=== PATIENT | male | born 1930 | race Caucasian/White ===

== ENCOUNTER 2019-05-25 14:11 | Emergency (ER) | payer MEDICARE, OTHER ==
[~2019-05-25] VITALS: Ht 167.7 cm; Wt 71.8 kg
--- NOTE | 2019-05-25 14:50 | ED GI ---
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 has had some weakness and dizziness Timing/Duration: 1-2 Days Severity/Quality: Moderate, Cramping Location: Generalized Abdomen Radiation: No Radiation Activities at Onset: Rest Modifying Factors: Improves With Eating, Improves With Movement Associated Symptoms: No Chest Pain, No Fatigue, No Headache, No Heartburn, No Syncope; Weakness Allergies and Home Medications Allergies Coded Allergies: No Known Drug Allergies (Unverified , 05/25/19) Patient Home Medication List Home Medication List Reviewed: Yes Review of Systems Review of Systems Constitutional: No chills, No dizziness, No fever; malaise EENTM: No Symptoms Reported Respiratory: Denies Cough, Denies Shortness of Air Cardiovascular: Denies Chest Pain; Lightheadedness; Denies Palpitations Gastrointestinal: Denies Abdomen Distended, Denies Abdominal Pain; Diarrhea Genitourinary: No Symptoms Reported Musculoskeletal: no symptoms reported Skin: no symptoms reported Psychiatric/Neurological: No Symptoms Reported Past Njzbirf-Wzoozz-Ntbqqd Hx Past Med/Social Hx: Reviewed Nursing Past Med/Soc Hx Patient Social History Recent Foreign Travel: No Physical Exam Vital Signs Vital Signs - First Documented 05/25/19 14:20 Temp 36.6 Pulse 83 Resp 16 B/P (MAP) 139/64 (89) Pulse Ox 97 O2 Delivery Room Air Capillary Refill : Height/Weight/BMI Height: '" Weight: lbs. oz. kg; BMI Method: General Appearance: WD/WN, no apparent distress HEENT: normal ENT inspection, TMs normal, pharynx normal Neck: full range of motion, supple Respiratory: lungs clear, no respiratory distress Cardiovascular: no JVD Gastrointestinal: non tender (quiet), soft, abnormal bowel sounds Extremities: normal range of motion, normal inspection, no calf tenderness Back: no CVA tenderness, no vertebral tenderness Neurologic/Psychiatric: no motor/sensory deficits, alert, normal mood/affect Skin: normal color, warm/dry Progress/Results/Core Measures Results/Orders Lab Results Laboratory Tests Test 05/25/19 14:35 05/25/19 17:00 Range/Units White Blood Count 9.0 4.3-11.0 10^3/uL Red Blood Count 3.42 L 4.35-5.85 10^6/uL Hemoglobin 11.4 L 13.3-17.7 G/DL Hematocrit 32 L 40-54 % Mean Corpuscular Volume 92 80-99 FL Mean Corpuscular Hemoglobin 33 25-34 PG Mean Corpuscular Hemoglobin Concent 36 32-36 G/DL Red Cell Distribution Width 13.2 10.0-14.5 % Platelet Count 191 130-400 10^3/uL Mean Platelet Volume 9.4 7.4-10.4 FL Neutrophils (%) (Auto) 79 H 42-75 % Lymphocytes (%) (Auto) 11 L 12-44 % Monocytes (%) (Auto) 10 0-12 % Eosinophils (%) (Auto) 0 0-10 % Basophils (%) (Auto) 0 0-10 % Neutrophils # (Auto) 7.1 1.8-7.8 X 10^3 Lymphocytes # (Auto) 1.0 1.0-4.0 X 10^3 Monocytes # (Auto) 0.9 0.0-1.0 X 10^3 Eosinophils # (Auto) 0.0 0.0-0.3 10^3/uL Basophils # (Auto) 0.0 0.0-0.1 10^3/uL Neutrophils % (Manual) 71 % Lymphocytes % (Manual) 6 % Monocytes % (Manual) 5 % Metamyelocytes % 1 % Band Neutrophils 8 % Atypical Lymphocytes 9 % Blood Morphology Comment NORMAL Sodium Level 135 135 135-145 MMOL/L Potassium Level 2.8 L 3.0 L 3.6-5.0 MMOL/L Chloride Level 98 103 98-107 MMOL/L Carbon Dioxide Level 19 L 17 L 21-32 MMOL/L Anion Gap 18 H 15 H 5-14 MMOL/L Blood Urea Nitrogen 54 H 53 H 7-18 MG/DL Creatinine 7.53 H 6.99 #H 0.60-1.30 MG/DL Estimat Glomerular Filtration Rate 7 7 BUN/Creatinine Ratio 7 8 Glucose Level 120 H 104 70-105 MG/DL Calcium Level 9.2 8.2 L 8.5-10.1 MG/DL Corrected Calcium 9.0 8.5-10.1 MG/DL Total Bilirubin 0.7 0.1-1.0 MG/DL Aspartate Amino Transf (AST/SGOT) 16 5-34 U/L Alanine Aminotransferase (ALT/SGPT) 9 0-55 U/L Alkaline Phosphatase 60 40-136 U/L Total Protein 7.8 6.4-8.2 GM/DL Albumin 4.3 3.2-4.5 GM/DL My Orders Orders - JACKIE BEACH JR, MD Cbc And Manual Diff (05/25/19 14:17) Comprehensive Metabolic Panel (05/25/19 14:17) Ns Iv 1000 Ml (Sodium Chloride 0.9%) (05/25/19 15:00) Ns Iv 1000 Ml (Sodium Chloride 0.9%) (05/25/19 14:52) Potassium Chloride (Tablet) (K Dur Table (05/25/19 15:45) Potassium Cl 10meq/50ml Ivpb (Kcl 10 Meq (05/25/19 16:00) Ns (Ivpb) (Sodium Chloride 0.9%) (05/25/19 16:18) Ed Iv/Invasive Line Start (05/25/19 16:24) Ns (Ivpb) (Sodium Chloride 0.9%) (05/25/19 16:24) Basic Metabolic Panel (05/25/19 16:52) Basic Metabolic Panel (05/25/19 16:53) Medications Given in ED Current Medications Medications Dose Ordered Sig/Jena Route Start Time Stop Time Status Last Admin Dose Admin Potassium Chloride 40 meq ONCE ONCE PO 05/25/19 15:45 05/25/19 15:46 DC 05/25/19 15:52 40 MEQ Potassium Chloride 50 ml @ 50 mls/hr ONCE ONCE IV 05/25/19 16:00 05/25/19 16:59 DC 05/25/19 15:55 50 MLS/HR Sodium Chloride 250 ml @ 0 mls/hr Q0M ONCE IV 05/25/19 16:24 05/25/19 16:26 DC 05/25/19 16:26 0 MLS/HR Vital Signs/I&O 05/25/19 14:20 Temp 36.6 Pulse 83 Resp 16 B/P (MAP) 139/64 (89) Pulse Ox 97 O2 Delivery Room Air Progress Progress Note : Time: 16:07 Progress Note Patient is here for IV fluids following diarrhea his blood work did shows potassium was low and his creatinine was about 7 to give him a liter of fluids we'll give him 40 of K by mouth and another 10 IV and recheck. Potassium on the recheck now is 3.0 I do think this is adequate for him to go home will continue to take his potassium supplement at home will recheck tomorrow or Thursday with his own physician. 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 Referrals: SELF,DONOVAN DE LA TORRE (PCP/Family) Primary Care Physician Patient Instructions: Chronic Kidney Disease, Hypokalemia JACKIE BEACH JR, MD May 25, 2019 14:50 POS
[2019-05-25] MEDS ORDERED: NS IV 1000 ML 1,000 ML ONE (14:52)
[2019-05-25 14:56] LABS: HEMATOCRIT 32 % (40-54); HEMOGLOBIN 11.4 G/DL (13.3-17.7); MEAN CORPUSCULAR HEMOGLOBIN 33 PG (25-34); MEAN CORPUSCULAR HGB CONC 36 G/DL (32-36); MEAN CORPUSCULAR VOLUME 92 FL (80-99)
[2019-05-25 14:57] LABS: BASOPHILS % (AUTO) 0 % (0-10); EOSINOPHILS % (AUTO) 0 % (0-10); LYMPHOCYTES % (AUTO) 11 % (12-44); MEAN PLATELET VOLUME 9.4 FL (7.4-10.4); MONOCYTES # (AUTO) 0.9 X 10^3 (0.0-1.0); MONOCYTES % (AUTO) 10 % (0-12); NEUTROPHILS # (AUTO) 7.1 X 10^3 (1.8-7.8); NEUTROPHILS % (AUTO) 79 % (42-75); PLATELET COUNT 191 10^3/uL (130-400); RED CELL DISTRIBUTION WIDTH 13.2 % (10.0-14.5)
[2019-05-25] MEDS ORDERED: NS IV 1000 ML 1,000 ML IV SCH (15:00)
[2019-05-25 15:16] LABS: ATYPICAL LYMPHOCYTES 9 %; BAND NEUTROPHILS 8 %; LYMPHOCYTES % (MANUAL) 6 %; METAMYELOCYTES % 1 %; MONOCYTES % (MANUAL) 5 %; NEUTROPHILS % (MANUAL) 71 %; RBC MORPH NORMAL
[2019-05-25 15:22] LABS: POTASSIUM 2.8 MMOL/L (3.6-5.0)
[2019-05-25 15:23] LABS: ALBUMIN 4.3 GM/DL (3.2-4.5); BILIRUBIN,TOTAL 0.7 MG/DL (0.1-1.0); CALCIUM 9.2 MG/DL (8.5-10.1); CREATININE SERUM 7.53 MG/DL (0.60-1.30); TOTAL PROTEIN 7.8 GM/DL (6.4-8.2)
[2019-05-25] MEDS ORDERED: KCL 20 MEQ TAB (K-DUR) PO ONE (15:45)
[2019-05-25] MEDS ORDERED: POTASSIUM CL 10MEQ/50ML IVPB 50 ML IV ONE (16:00)
[2019-05-25] MEDS ORDERED: NS (IVPB) 250 ML ONE (16:18)
[2019-05-25] MEDS ORDERED: NS (IVPB) 250 ML IV ONE (16:24)
[2019-05-25 17:25] LABS: CALCIUM 8.2 MG/DL (8.5-10.1); CREATININE SERUM 6.99 MG/DL (0.60-1.30)
[2019-05-25 17:55] VITALS: BP 119/65
--- OUTSIDE RECORDS SUMMARY | 2019-06-20 10:48 | XMS REPORT | Continuity of Care Document ---
Author Organization Unknown Address Unknown Phone Unavailable Allergies Active Description Code Type Severity Reaction Onset Reported/Identified Relationship to Patient Clinical Status Yes No Known Drug Allergies [id number] Drug Allergy Unknown N/A 05/25/2019 Medications There is no data. Problems Date Dx Coded Attending Type Code Diagnosis Diagnosed By 05/30/2019 BAYLEE DE LA TORRE, JACKIE Hernandez Ot E86.0 DEHYDRATION 05/30/2019 JACKIE BEACH MD Ot E87.6 HYPOKALEMIA 05/30/2019 JACKIE BEACH MD Ot N18.6 END STAGE RENAL DISEASE 05/30/2019 JACKIE BEACH MD Ot R11.10 VOMITING, UNSPECIFIED 05/30/2019 JACKIE BEACH MD Ot Z99.2 DEPENDENCE ON RENAL DIALYSIS 06/13/2019 DONOVAN ALEXANDRA MD Ot M54.10 RADICULOPATHY, SITE UNSPECIFIED Procedures There is no data. Results Test Result Range Blood CBC with ordered manual differenti al panel - 05/25/19 14:35 Blood leukocytes automated count (number/volume) 9.0 10*3/uL 4.3-11.0 Blood erythrocytes automated count (number/volume) 3.42 10*6/uL 4.35-5.85 Venous blood hemoglobin measurement (mass/volume) 11.4 g/dL 13.3-17.7 Blood hematocrit (volume fraction) 32 % 40-54 Automated erythrocyte mean corpuscular volume 92 [ foz_us] 80-99 Automated erythrocyte mean corpuscular h emoglobin (mass per erythrocyte) 33 pg 25-34 Automated erythrocyte mean corpuscular h emoglobin concentration measurement (mass/volume) 36 g/dL 32-36 Automated erythrocyte distribution width ratio 13. 2 % 10.0- 14.5 Automated blood platelet count (count/volume) 191 10*3/uL 130-400 Automated blood platelet mean volume measurement 9.4 [foz_us] 7.4-10.4 Automated blood neutrophils/100 leukocytes 79 % 42-75 Automated blood lymphocytes/100 leukocytes 11 % 12-44 Blood monocytes/100 leukocytes 5 % NRG Automated blood eosinophils/100 leukocytes 0 % 0-10 Automated blood basophils/100 leukocytes 0 % 0-10 Blood neutrophils automated count (number/volume) 7.1 10*3 1.8-7.8 Blood lymphocytes automated count (number/volume) 1.0 10*3 1.0-4.0 Blood monocytes automated count (number/volume) 0. 9 10*3 0.0-1.0 Automated eosinophil count 0.0 10*3/uL 0 .0-0.3 Automated blood basophil count (count/volume) 0.0 10*3/uL 0.0-0.1 Manual blood segmented neutrophils/100 leukocytes 71 % NRG Blood band neutrophils/100 leukocytes 8 % NRG Manual blood lymphocytes/100 leukocytes 6 % NRG Manual blood lymphocytes variant/100 leukocytes 9 % NRG Blood erythrocyte morphology finding identification NORMAL NRG Manual blood metamyelocytes/100 leukocytes 1 % NRG Comprehensive metabolic panel - 05/25/19 14:35 Serum or plasma sodium measurement (moles/volume) 135 mmol/L 135-145 Serum or plasma potassium measurement (moles/volume) 2.8 mmol/L 3.6-5.0 Serum or plasma chloride measurement (moles/volume) 98 mmol/L 98-107 Carbon dioxide 19 mmol/L 21-32 Serum or plasma anion gap determination (moles/volume) 18 mmol/L 5-14 Serum or plasma urea nitrogen measurement (mass/volume ) 54 mg/dL 7-18 Serum or plasma creatinine measurement (mass/volume) 7.53 mg/dL 0.60-1.30 Serum or plasma urea nitrogen/creatinine mass ratio 7 NRG Serum or plasma creatinine measurement w ith calculation of estimated glomerular filtration rate 7 NRG Serum or plasma glucose measurement (mass/volume) 120 mg/dL 70-105 Serum or plasma calcium measurement (mass/volume) 9.2 mg/dL 8.5-10.1 Serum or plasma total bilirubin measurement (mass/volu me) 0.7 mg/dL 0.1-1.0 Serum or plasma alkaline phosphatase julián surement (enzymatic activity/volume) 60 U/L 40-136 Serum or plasma aspartate aminotransfera se measurement (enzymatic activity/volume) 16 U/L 5-34 Serum or plasma alanine aminotransferase measurement (enzymatic activity/volume) 9 U/L 0-55 Serum or plasma protein measurement (mass/volume) 7.8 g/dL 6.4-8.2 Serum or plasma albumin measurement (mass/volume) 4.3 g/dL 3.2-4.5 CALCIUM CORRECTED 9.0 mg/dL 8.5-10.1 Whole blood basic metabolic panel - 10/08 17:00 Serum or plasma sodium measurement (moles/volume) 135 mmol/L 135-145 Serum or plasma potassium measurement (moles/volume) 3.0 mmol/L 3.6-5.0 Serum or plasma chloride measurement (moles/volume) 103 mmol/L 98-107 Carbon dioxide 17 mmol/L 21-32 Serum or plasma anion gap determination (moles/volume) 15 mmol/L 5-14 Serum or plasma urea nitrogen measurement (mass/volume ) 53 mg/dL 7-18 Serum or plasma creatinine measurement (mass/volume) 6.99 mg/dL 0.60-1.30 Serum or plasma urea nitrogen/creatinine mass ratio 8 NRG Serum or plasma creatinine measurement w ith calculation of estimated glomerular filtration rate 7 NRG Serum or plasma glucose measurement (mass/volume) 104 mg/dL 70-105 Serum or plasma calcium measurement (mass/volume) 8.2 mg/dL 8.5-10.1 Encounters ACCT No. Visit Date/Time Discharge Status Pt. Type Provider Facility Loc./Unit Complaint [id number] 06/09/2019 16:03:00 23:59:59 CLS Outpatient DONOVAN ALEXANDRA MD [facility] RAD FS M54.10 [id number] 05/25/2019 14:14:00 17:55:00 DIS Outpatient BAYLEE DE LA TORRE, JACKIE Hernandez [facility] ER FS VOMITING; DIARRHEA
== END 2019-05-25 17:55 | disposition home or self-care (01) ==
LOC: ER FS 14:14
DX: E87.6 Hypokalemia (principal); N18.6 End stage renal disease; E86.0 Dehydration; Z99.2 Dependence on renal dialysis
CPT/HCPCS: 36415; 80048; 80053; 85007; 85027

== ENCOUNTER → 2019-06-09 | Outpatient (CLI) | payer MEDICARE, OTHER ==
--- NOTE | 2019-06-09 16:37 | Diagnostic Imaging Report ---
Indication: Radiculopathy Cervical spine AP and lateral views of the cervical spine shows normal vertebral body height and alignment. Disc spaces are normal. Odontoid is intact. Atlantoaxial relationship is normal. IMPRESSION: Negative cervical spine Dictated by: Dictated on workstation # [id number]
== END ==
LOC: RAD FS 16:03
PROVIDERS: ATTEND Family Medicine
DX: M54.10 Radiculopathy, site unspecified (principal)
CPT/HCPCS: 72040